=== PATIENT | female | born 1995 | race Asian ===

== ENCOUNTER 2018-11-20 10:12 | Inpatient (IN) | payer OTHER ==
[~2018-11-20] VITALS: Ht 158 cm; Wt 79.5 kg
[2018-11-20] MEDS ORDERED: RINGERS SOLUTION,LACTATED 1,000 ML IV ONE (10:33)
[2018-11-20 10:44] VITALS: BP 113/68
[2018-11-20] MEDS ORDERED: METOCLOPRAMIDE HCL 5 MG/ML 2 ML VIAL IVP ONE (10:45)
[2018-11-20] MEDS ORDERED: CITRIC ACID/SODIUM CITRATE 30 ML SOLUTION UDCUP PO ONE (10:45)
[2018-11-20] MEDS ORDERED: PNV1TABL54 PO (10:48)
[2018-11-20 11:30] LABS: BASOPHILS % (AUTO) 0.3 % (0.0-2.0); EOSINOPHILS % (AUTO) 0.7 % (1.0-6.0); HEMATOCRIT 38.1 % (36-46); HEMOGLOBIN 12.8 g/dL (12.0-16.0); LYMPHOCYTES % (AUTO) 22.8 % (22.0-44.0); MEAN CORPUSCULAR HEMOGLOBIN 30.1 pg (26.0-34.0); MEAN CORPUSCULAR HGB CONC 33.6 G/dL (31.0-37.0); MEAN CORPUSCULAR VOLUME 90 fL (80-100); MONOCYTES # (AUTO) 0.7 K/uL (0.1-1.0); MONOCYTES % (AUTO) 8.2 % (2.0-9.0); NEUTROPHILS # (AUTO) 5.8 K/uL (1.8-7.7); PLATELET COUNT (AUTO) 212 K/uL (150-450); RED BLOOD CELL COUNT(AUTO) 4.25 MIL/uL (4.00-5.20)
[2018-11-20] MEDS ORDERED: MIDAZOLAM HCL 2 MG/2 ML VIAL ONE (11:45)
[2018-11-20] MEDS ORDERED: FentaNYL CITRATE-PF 100 MCG/2 ML VIAL ONE (11:45)
[2018-11-20] MEDS ORDERED: MORPHINE SULFATE/PF 1 MG/ML 10 ML AMP ONE (11:46)
[2018-11-20] MEDS ORDERED: ONDANSETRON HCL 4 MG/2 ML VIAL ONE (11:46)
[2018-11-20] MEDS ORDERED: KETOROLAC TROMETHAMINE 30 MG/ML VIAL ONE (11:46)
[2018-11-20] MEDS ORDERED: DEXAMETHASONE SOD PHOS 4 MG/ML VIAL ONE (11:46)
[2018-11-20] MEDS ORDERED: BUPIVACAINE HCL/DEX-WATER/PF 0.75% 2 ML AMP ONE (11:46)
[2018-11-20] MEDS ORDERED: ONDANSETRON HCL 4 MG/2 ML VIAL IVP PRN (12:15)
[2018-11-20] MEDS ORDERED: NALOXONE HCL 0.4 MG/ML VIAL IVP PRN (12:15)
[2018-11-20] MEDS ORDERED: OxyCODONE HCL/ACETAMINOPHEN 5-325 MG TABLET PO PRN ×3 (12:15→17:30)
[2018-11-20] MEDS ORDERED: OXYTOCIN 30 UNITS/LACT RINGERS 500 ML IV ONE (17:19)
[2018-11-20] MEDS ORDERED: LANOLIN 7 GM OINTMENT TP PRN (17:30)
[2018-11-20] MEDS: KETOROLAC TROMETHAMINE 30 MG/ML VIAL IVP SCH (18:36)
[2018-11-20] MEDS: RINGERS SOLUTION,LACTATED 1,000 ML IV SCH (18:43)
[2018-11-20] MEDS: OXYGEN THERAPY IH SCH ×2 (20:00)
[2018-11-20] MEDS: DiphenhydrAMINE HCL 50 MG/ML VIAL IVP PRN (20:23)
[2018-11-20] MEDS: MAGNESIUM HYDROXIDE SUSPENSION 30 ML UDCUP PO SCH (23:54)
[2018-11-21] MEDS: KETOROLAC TROMETHAMINE 30 MG/ML VIAL IVP SCH ×2 (00:38→06:33)
[2018-11-21] MEDS: DiphenhydrAMINE HCL 50 MG/ML VIAL IVP PRN ×2 (02:45→08:16)
[2018-11-21] MEDS: RINGERS SOLUTION,LACTATED 1,000 ML IV SCH (02:51)
[2018-11-21 06:22] LABS: BASOPHILS % (AUTO) 0.2 % (0.0-2.0); EOSINOPHILS % (AUTO) 0.1 % (1.0-6.0); HEMATOCRIT 30.5 % (36-46); HEMOGLOBIN 10.2 g/dL (12.0-16.0); LYMPHOCYTES # (AUTO) 2.1 K/uL (1.0-4.8); LYMPHOCYTES % (AUTO) 18.9 % (22.0-44.0); MEAN CORPUSCULAR HEMOGLOBIN 30.4 pg (26.0-34.0); MEAN CORPUSCULAR HGB CONC 33.4 G/dL (31.0-37.0); MEAN CORPUSCULAR VOLUME 91 fL (80-100); MONOCYTES # (AUTO) 0.9 K/uL (0.1-1.0); MONOCYTES % (AUTO) 7.8 % (2.0-9.0); NEUTROPHILS # (AUTO) 8.2 K/uL (1.8-7.7); PLATELET COUNT (AUTO)-OB 176 K/uL (150-450); RED BLOOD CELL COUNT(AUTO) 3.36 MIL/uL (4.00-5.20); RED CELL DISTRIBUTION WIDTH 13.5 % (11.5-14.5)
[2018-11-21] MEDS: OXYGEN THERAPY IH SCH ×4 (08:00→20:00)
[2018-11-21] MEDS: MAGNESIUM HYDROXIDE SUSPENSION 30 ML UDCUP PO SCH ×2 (08:14→21:15)
[2018-11-21] MEDS ORDERED: IBUPROFEN 800 MG TABLET PO PRN (17:30)
[2018-11-22] MEDS ORDERED: PERCT PO (08:29)
[2018-11-22] MEDS ORDERED: IBUP-2071 PO (08:30)
[2018-11-22] MEDS ORDERED: DSS100 PO (08:31)
[2018-11-22] MEDS ORDERED: FERR-89 PO (08:31)
[2018-11-22] MEDS: MAGNESIUM HYDROXIDE SUSPENSION 30 ML UDCUP PO SCH (08:33)
== END 2018-11-22 12:50 | disposition home or self-care (01) | DRG 788 ==
LOC: OBSVTOIN 10:12 → 4S 10:12
PROVIDERS: ADMIT Obstetrics & Gynecology; ATTEND Obstetrics & Gynecology
PROC: 10D00Z1 Extraction of Products of Conception, Low, Open Approach (ICD-10-PCS; principal; 2018-11-20)
DX: O34.211 Maternal care for low transverse scar from previous cesarean delivery (principal); O69.81X0 Labor and delivery complicated by cord around neck, without compression, not applicable or unspecified; Z3A.39 39 weeks gestation of pregnancy; Z37.0 Single live birth
CPT/HCPCS: 87081; 88302; J1100; J1200; J1885; J2250; J2405; J2765; J3010; J3490; J7120